=== PATIENT | female | born 1935 | race Caucasian/White ===

== ENCOUNTER 2020-08-17 19:07 | Observation (INO) | payer BC ==
[~2020-08-17] VITALS: Ht 157.5 cm; Wt 60.3 kg
[2020-08-17] MEDS ORDERED: EUTHYROX50 MCG PO (19:45)
[2020-08-17] MEDS ORDERED: Percocet 5-3251 EACH PO (22:16)
[2020-08-17] MEDS ORDERED: Keflex500 MG PO (22:18)
[2020-08-18 01:08] LABS: BASOPHILS ABSOLUTE AUTO 0.03 K/mm3 (0.00-0.23); BASOPHILS PERCENT AUTO 0 % (0-2); EOSINOPHILS ABSOLUTE AUTO 0.03 K/mm3 (0.00-0.68); EOSINOPHILS PERCENT AUTO 0 % (0-6); Hematocrit 32.1 % (33.0-51.0); Hemoglobin 10.9 g/dL (11.5-16.0); IMMATURE GRAN ABSOLUTE AUTO 0.04 K/mm3 (0.00-0.10); IMMATURE GRAN PERCENT AUTO 0 % (0-1); LYMPHOCYTES ABSOLUTE AUTO 1.18 K/mm3 (0.84-5.20); LYMPHOCYTES PERCENT AUTO 11 % (21-46); MONOCYTES ABSOLUTE AUTO 0.84 K/mm3 (0.16-1.47); MONOCYTES PERCENT AUTO 8 % (4-13); Mean Corpuscular Volume 97 fL (80-100); NEUTROPHILS ABSOLUTE AUTO 8.85 K/mm3 (1.96-9.15); NEUTROPHILS PERCENT AUTO 81 % (41-73); Platelet Count 234 K/mm3 (150-400); RDW Coefficient Variation 12.7 % (11.7-14.2); RDW Standard Deviation 45.3 fL (35.1-46.3); White Blood Cell Count 10.97 K/mm3 (4.00-11.30)
[2020-08-18 01:48] LABS: Albumin, Blood 3.1 g/dL (3.4-5.0); Albumin/Globulin Ratio 1.2 (0.8-1.8); Bilirubin, Total 0.3 mg/dL (0.1-1.0); Bun/Creatinine Ratio 15.9 (12.0-20.0); Creatinine, Blood 0.95 mg/dL (0.40-1.00); Globulin, Blood 2.6 g/dL (2.2-4.0); Total Protein, Blood 5.7 g/dL (6.4-8.2)
--- NOTE | 2020-08-18 02:00 | NUR ---
ADMISSION NOTE RECEIVED HAND OFF FROM Michele PORRAS RN USING SBAR. TRANSPORTED TO ROOM 230 VIA STRETCHER. TRANSFERED TO BED WITH FULL STAFF ASSISTANCE USING SLIDER SHEET, TOLERATED WELL. AAO X3, LAGOS, FOLLOWS ALL COMMANDS. ORIENTED TO ROOM, CALL SYSTEM, AND POC, VOICES UNDERSTANDING. RESPIRATIONS EVEN AND UNLABORED ON ROOM AIR. LUNG SOUNDS CLEAR BIALTERALLY. ABDOMEN SOFT AND NONDISTENDED. BOWEL TONES NOTED IN ALL QUADS. LEFT ARM 20G PIV IS PATENT, FLUSHING WITH EASE WHILE INFUSING NS BOLUS FROM ER. WILL START LR WHEN NS IS FINISHED. HANDS BILATERALLY WRAPPED WITH GUAZE AND WEBBING OVER THAT. ABLE TO MOVE FINGERS AND HANDS. RIGHT ARM IN SLING FOR SUPPORT AND COMFORT. CONTINENT OF BOWEL AND BLADDER, USES BATHROOM. CURRENTLY DENIES PAIN, DISCOMFORT, OR FURTHER NEEDS. ADMISSION ASSESSMENT IN PROGRESS. SAFETY MEASURES IN PLACE. WILL CONTINUE TO MONITOR AND ADDRESS NEEDS THEY ARISE.
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
--- NOTE | 2020-08-18 18:20 | NUR ---
DRESSING CHANGE: PER ORDER DRESSING AT L ARM REMOVED AND CLEANSED WITH H202 AND WATER. PICTURES TAKEN OF BOTH R AND L ARM WOUNDS AND PLACED IN CHART. L ARM WOUND THEN DRESSED WITH XEROFORM, NON-ADHERENT DRESSING, ABD PAD, AND LOOSE KERLEX. PT TOLERATED WELL.
--- NOTE | 2020-08-18 18:24 | NUR ---
SUMMARY: NO ACUTE CHANGE TODAY. VSS, A/O. SBA TO BATHROOM. IMMOBILIZER TO R ARM AND WOUND DRESSINGS WNL. PT PAINFUL WITH AMBULATION, OTHERWISE REPORTS THAT PAIN IS MINIMAL. MEDICATED PER EMAR AND ICE PLACED TO R SHOULDER. PLAN AT THIS TIME IS NO SURGERY, WOUND CARE, AND PAIN CONTROL. WILL REPORT TO ROSSY PEREZ.
--- NOTE | 2020-08-19 05:24 | NUR ---
MACHINE STAMPER SUMMARY PT IS AXO X4 AND CALLS APPROPRIATELY. PT HAS MAINTAINED R ARM IN IMMOBILIZER ALL SHIFT. RUE IS SWOLLEN BUT REMAINS UNCHANGED ALL SHIFT. PT'S SENSATION IN R HAND IS INTACT AND HAS <3 SEC CAP REFILL IN ALL 5 DIGITS. PT HAS MAINTAINED O2 SATS >92% ON RM AIR. PT HAS REMAINED AFEBRILE W PEAK TEMP 97.7. DRESSINGS CHANGED ON BUE PER ORDER THIS SHIFT. PT REPORTS MILD PAIN IN RUE WHILE AT REST BUT IT CAN BECOME SEVERE WHEN UP OR MOVING, MEDICATED PER EMAR. TELE HAS SHOWN NSR IN THE 70'S. WILL REPORT TO ONCOMING RN.
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
--- NOTE | 2020-08-19 17:50 | NUR ---
SHIFT ASSESSMENT [id number], SOME INTERMITTENT CONFUSION TODAY, ASKED THE SAME QUESTIONS REPEATEDLY EVEN IF ANSWER WAS PROVIDED. GOT AGITATED WITH STAFF ASKING ABOUT HER PLAN OF CARE, PROVIDED ANSWER FOR THE PATIENT AND SHE WOULD NOT ACCEPT THE ANSWER. THIS AGITATION LASTED APPROX 1 HOUR AND RESOLVED. SHE IS PLANNING TO SHOWER TODAY WITH HER DRESSING CHANGE. PAIN TOLERABLE DURING SHIFT WITH PO PAIN MEDS. TOLERABLE WHEN MOVING BUT INCREASES WITH AMBULATION. PLAN IS TO DISCHARGE ONCE PAIN TOLERABLE BY PO.
--- NOTE | 2020-08-19 19:04 | NUR ---
WOUND CARE DONE AT THIS TIME. PT TOLERATED WELL WITH PAIN INCREASING TO 6/10 THAT QUICKLY SUBSIDED. ABLE TO APPLY STERI STRIPS TO SKIN TEARS ON R ARM NEAR ELBOW. DRESSING CHANGE INSTRUCTIONS GONE OVER WITH GRANDSON. PLAN IS FOR PATIENTS AND SON TO COME IN TOMORROW FOR MORE EDUCATION.
--- NOTE | 2020-08-19 19:32 | NUR ---
RECEIVED REPORT AND ASSUMED CARE OF PT. SHE IS LYING QUIETLY IN BED, AWAKE AND ALERT. SHE REQUESTED ASSISTANCE WITH THE TV REMOTE, STATING THAT SHE GETS CONFUSED WHEN TRYING TO OPERATE IT. SHE DENIES ANY OTHER NEEDS AT THIS TIME. ODILIA.
--- NOTE | 2020-08-20 04:22 | NUR ---
SHIFT SUMMARY: LOCO AROUSES EASILY AND RESPONDS APPROPRIATELY. VSS, NO ACUTE EVENTS OVERNIGHT. SHE REPORTS ADEQUATE PAIN CONTROL WITH ONE TABLET OF NORCO. SHE IS A ONE PERSON STANDBY ASSIST TO THE BATHROOM, TOLERATING PO INTAKE WELL, URINATING WITHOUT DIFFICULTY. DRESSINGS TO BILATERAL ARMS C/D&I, IMMOBILIZER IN PLACE TO RA. SHE IS LYING IN BED WITH THE CALL LIGHT IN REACH. WILL REPORT TO DAY SHIFT RN.
[2020-08-20] MEDS ORDERED: ACET325 PO (15:24)
[2020-08-20] MEDS ORDERED: DOCU100 PO (15:25)
[2020-08-20] MEDS ORDERED: DULCOLAX400 MG/5 M PO (15:25)
[2020-08-20] MEDS ORDERED: SENN187 PO (15:26)
[2020-08-20] MEDS ORDERED: Norco 5-325 Ta1 EACH PO (15:26)
== END 2020-08-20 18:00 | disposition home or self-care (01) ==
LOC: ER 19:07 → SURS 19:08
PROVIDERS: Student in an Organized Health Care Education/Training Program; ADMIT Internal Medicine
DX: S42.201A Unspecified fracture of upper end of right humerus, initial encounter for closed fracture (principal); S61.402A Unspecified open wound of left hand, initial encounter; S61.401A Unspecified open wound of right hand, initial encounter; V86.99XA Unspecified occupant of other special all-terrain or other off-road motor vehicle injured in nontraffic accident, initial encounter; E03.9 Hypothyroidism, unspecified; D64.9 Anemia, unspecified; R73.9 Hyperglycemia, unspecified; F41.9 Anxiety disorder, unspecified; R41.3 Other amnesia
CPT/HCPCS: 29105; 71045; 73060; 73110; 73130; 80053; 82550; 85025; 90471; 90714; 96360; 96372; 97110; 97116; 97162; 97166; 97530; 97535; 99285-25; A9270; G0378; J1650; J7030; J7120